=== PATIENT | female | born 2000 | race Hispanic/Latino ===

== ENCOUNTER 2020-09-09 08:40 | Emergency (ER) | payer OTHER ==
[2020-09-09 08:56] VITALS: BP 118/84
[2020-09-09 09:55] LABS: Basophils % (Auto) 0.6 % (0.0-1.8); Eosinophils # (Auto) 0.1 K/mm3 (0.0-0.4); Eosinophils % (Auto) 1.8 % (0.0-4.3); Hematocrit 37.2 % (30.3-42.9); Hemoglobin 12.4 gm/dl (10.1-14.3); Lymphocytes # (Auto) 2.6 K/mm3 (1.2-5.4); Lymphocytes % (Auto) 37.5 % (13.4-35.0); Mean Corpuscular HGB Conc 33 % (30-34); Mean Corpuscular Volume 83 fl (79-97); Monocytes # (Auto) 0.5 K/mm3 (0.0-0.8); Monocytes % (Auto) 7.7 % (0.0-7.3); Platelet Count 336 K/mm3 (140-440); Red Blood Count 4.49 M/mm3 (3.65-5.03); Red Cell Distribution Width 14.7 % (13.2-15.2)
[2020-09-09 10:03] LABS: HCG Qualitative,Urine Positive (Negative)
[2020-09-09 10:05] LABS: Bilirubin,Urine NEG (Negative); Blood,Urine LG (Negative); Color,Urine Red (Yellow); RBC,Urine > 182.0 /HPF (0.0-6.0); Urobilinogen,Urine < 2.0 mg/dL (<2.0)
--- NOTE | 2020-09-09 10:09 | Emergency Department Report ---
ED General Adult HPI - General Chief complaint: Vaginal Bleeding Stated complaint: , VAGINAL BLEEDING Time Seen by Provider: 09/09/20 08:53 Source: patient, EMS Mode of arrival: Stretcher Limitations: No Limitations - History of Present Illness Initial comments: 20-year-old female presents via EMS from [facility] for vaginal bleeding starting today. Patient states she is currently , however she is not sure of how far along she is. Patient states her last menstrual cycle was August 01. She states she has bled through 2 pads in the last 4 hours. She states mild lower abdominal cramping that radiates to her back. She denies any dysuria/hematuria, nausea/vomiting/diarrhea/constipation, or fever/chills/sweats. Patient states she is not currently following with an SOCIAL SERVICES SPECIALIST. She also denies any dyspareunia or vaginal discharge - Related Data Previous Rx's Medication Instructions Recorded Last Taken Type Amoxicillin/Potassium Clav 1 each PO BID 5 Days #10 tablet 09/09/20 Unknown Rx [Augmentin 875-125 Tablet] Allergies Allergy/AdvReac Type Severity Reaction Status Date / Time atomoxetine [From Strattera] Allergy Unknown Verified 09/09/20 08:48 ibuprofen [From Motrin] Allergy Unknown Verified 09/09/20 08:48 ketorolac [From Toradol] Allergy Unknown Verified 09/09/20 08:48 ED Review of Systems ROS: Stated complaint: , VAGINAL BLEEDING Other details as noted in HPI Constitutional: denies: chills, fever, malaise Cardiovascular: denies: chest pain Gastrointestinal: abdominal pain. denies: nausea, vomiting, diarrhea, constipation Genitourinary: abnormal menses. denies: urgency, dysuria, frequency, hematuria, discharge Skin: denies: rash, lesions, change in color Hematological/Lymphatic: denies: easy bleeding ED Past Medical Hx - Past Medical History Previous Medical History?: Yes Additional medical history: anxiety, depression, PTSD - Surgical History Past Surgical History?: Yes Additional Surgical History: - Social History Smoking Status: Never Smoker - Medications Home Medications: Home Medications Medication Instructions Recorded Confirmed Last Taken Type Amoxicillin/Potassium Clav 1 each PO BID 5 Days #10 tablet 09/09/20 Unknown Rx [Augmentin 875-125 Tablet] ED Physical Exam - General Limitations: No Limitations General appearance: alert, in no apparent distress, obese - Head Head exam: Present: atraumatic, normocephalic - Eye Eye exam: Present: normal appearance. Absent: scleral icterus - Respiratory Respiratory exam: Present: normal lung sounds bilaterally. Absent: respiratory distress - Cardiovascular Cardiovascular Exam: Present: regular rate, normal rhythm - GI/Abdominal GI/Abdominal exam: Present: soft, normal bowel sounds. Absent: distended, tenderness, guarding, rebound, rigid - Neurological Exam Neurological exam: Present: alert, oriented X3 - Psychiatric Psychiatric exam: Present: normal affect, normal mood - Skin Skin exam: Present: warm, dry, intact, normal color. Absent: rash, cyanosis, diaphoretic, erythema, pallor, ecchymosis ED Course Vital Signs 09/09/20 09/09/20 08:51 08:52 Temperature 97.8 F Pulse Rate 89 85 Respiratory 20 Rate Blood Pressure 118/84 O2 Sat by Pulse 99 98 Oximetry ED Medical Decision Making - Lab Data Result diagrams: 09/09/20 09:29 09/09/20 09:29 - Radiology Data Radiology results: report reviewed ULTRASOUND OBSTETRIC INDICATION / CLINICAL INFORMATION: bleeding in . Clinical Gestational Age (GA): 4.3 weeks.days TECHNIQUE: Transabdominal and Transvaginal. COMPARISON: None available. FINDINGS: The uterus measures 7.9 x 4.3 x 4.3 cm with a 1 cm endometrial stripe. There is minimal endometrial fluid in the lower uterine segment. No evidence of definite intrauterine at this time. ADNEXA: 1.8 cm complex cystic structure of the right ovary likely represents corpus luteal cyst. The left ovary is unremarkable. FREE FLUID: None. ADDITIONAL FINDINGS: None. IMPRESSION: 1. No definite evidence of intrauterine at this time. This could be secondary to the patient's early gestational age. Close clinical and ultrasound follow-up is recommended. - Medical Decision Making 20-year-old female presents via EMS from [facility] for vaginal bleeding starting today. Patient states she is currently , however she is not sure of how far along she is. Patient states her last menstrual cycle was August 01. She states she has bled through 2 pads in the last 4 hours. She states mild lower abdominal cramping that radiates to her back. She denies any dysuria/hematuria, nausea/vomiting/diarrhea/constipation, or fever/chills/sweats. Patient states she is not currently following with an SOCIAL SERVICES SPECIALIST. She also denies any dyspareunia or vaginal discharge No IUP noted on ultrasound-miscarriage versus early gestation. UA shows UTI. Will treat with Augmentin. No other significant abnormalities noted on labs. Recommend patient follows up here in ED in 2 days for repeat beta hCG. Patient also follow-up with SOCIAL SERVICES SPECIALIST-referral provided. Her vitals are normal, she is well-appearing, she is stable for discharge home. Discussed signs and symptoms that should prompt immediate return to the emergency department in detail with patient who verbalizes understanding. Critical care attestation.: If time is entered above; I have spent that time in minutes in the direct care of this critically ill patient, excluding procedure time. ED Disposition Clinical Impression: UTI in , Threatened miscarriage Disposition: DC-01 TO HOME OR SELFCARE Is pt being admited?: No Condition: Stable Instructions: Threatened Miscarriage, Vaginal Bleeding During , First Trimester, [id number] Additional Instructions: Return to the emergency department on 09/11/2020 for repeat beta hCG lab Prescriptions: Amoxicillin/Potassium Clav [Augmentin 875-125 Tablet] 1 each PO BID 5 Days #10 tablet Referrals: [facility] [Provider Group] - 2-3 Days
[2020-09-09 10:19] LABS: Alanine Aminotransferase 10 units/L (7-56); Albumin 4.5 g/dL (3.9-5); Blood Urea Nitrogen 7 mg/dL (7-17); Calcium 9.4 mg/dL (8.4-10.2); Hemolysis Index 0
[2020-09-09 10:21] LABS: BUN/Creatinine Ratio 18
--- NOTE | 2020-09-09 10:58 | Ultrasound Report ---
ULTRASOUND OBSTETRIC INDICATION / CLINICAL INFORMATION: bleeding in . Clinical Gestational Age (GA): 4.3 weeks.days TECHNIQUE: Transabdominal and Transvaginal. COMPARISON: None available. FINDINGS: The uterus measures 7.9 x 4.3 x 4.3 cm with a 1 cm endometrial stripe. There is minimal endometrial f luid in the lower uterine segment. No evidence of definite intrauterine at this time. ADNEXA: 1.8 cm complex cystic structure of the right ovary likely represents corpus luteal cyst. The left ovary is unremarkable. FREE FLUID: None. ADDITIONAL FINDINGS: None. IMPRESSION: 1. No definite evidence of intrauterine at this time. This could be secondary to the patien t's early gestational age. Close clinical and ultrasound follow-up is recommended. Signer Name: Alex Ramirez MD Signed: 09/09/2020 10:54 AM Workstation Name: [id number][id number]
== END 2020-09-09 14:20 | disposition home or self-care (01) ==
LOC: ED 08:40
DX: O20.0 Threatened abortion (principal); O23.41 Unspecified infection of urinary tract in pregnancy, first trimester; Z3A.01 Less than 8 weeks gestation of pregnancy; Z98.890 Other specified postprocedural states; Z79.899 Other long term (current) drug therapy; Z88.8 Allergy status to other drugs, medicaments and biological substances
CPT/HCPCS: 36415; 76801; 76817; 80053; 81001; 81025; 84702; 85025; 86900; 86901; 87086